=== PATIENT | male | born 1965 | race Caucasian/White ===

== ENCOUNTER 2019-01-18 06:47 | Day surgery (SDC) | payer BC ==
[2019-01-04 08:44] VITALS: BMI 27.7
--- NOTE | 2019-01-17 22:00 | HP ---
DATE OF EXAM: 01/18/2019 REASON FOR ADMISSION: Left heart cath, possible angioplasty, abnormal stress test. BRIEF CLINICAL HISTORY: This is a 53-year-old male with past medical history significant for hypertension, who recently had abnormal stress test with Dr. Dhaliwal, so the patient is scheduled for elective cardiac cath, possible angioplasty. PAST MEDICAL HISTORY: Significant for hypertension and hyperlipidemia. SOCIAL HISTORY: Denies any smoking. Denies any history of alcohol abuse. CURRENT MEDICATIONS: The patient is taking amlodipine 10 mg daily, enalapril 20 mg daily, vitamin D 5000 units, omega-3 and cholecalciferol, this is vitamin D3, vitamin A, and vitamin C as well. ALLERGIES: ALLERGY TO FLUORESCEIN. RECENT CARDIAC WORKUP FOLLOWS: The patient had a stress test dated 12/21/2018 that shows ejection fraction 53%. Nuclear scan is probably abnormal. Myocardial perfusion study partially reversible small size apical defect suspicious for ischemia, normal gated wall motion abnormality. The patient walked on the treadmill 8 minutes and 23 seconds. Juni protocol was stopped due to fatigue, achieved 90% of predicted heart rate. No chest pain. No ST-T changes noted, but nuclear scan suspicious for ischemia. Echocardiography dated 12/21/2018 showed normal LV size, ejection fraction 55%, right ventricle size is normal, left atrium is normal, right atrium is normal, aortic valve structure is normal, mild mitral regurgitation, and mild tricuspid regurgitation. REVIEW OF SYSTEMS: As per HPI. PHYSICAL EXAMINATION: GENERAL: As follows; height of the patient 5 feet 6 inches, weight of the patient 172 pounds, and body mass index 27.2 kg/m2. VITAL SIGNS: Temperature afebrile, heart rate 80, and blood pressure 130/80. HEENT: PERRLA. Extraocular muscles intact. NECK: Supple. No carotid bruits. No thyromegaly. CHEST: Clear to auscultation. HEART: S1 and S2 regular. ABDOMEN: Soft. EXTREMITIES: Clubbing and cyanosis negative. IMPRESSION AND PLAN: A 53-year-old male with past medical history significant for hypertension, hyperlipidemia, vitamin D deficiency, underwent stress test that shows abnormal apical ischemia. The patient is scheduled for elective cardiac catheterization, possible angioplasty. The patient's echocardiogram shows trace mitral regurgitation, trace tricuspid regurgitation. We will load with aspirin and Plavix. Risks, benefits, and alternatives discussed with patient, the patient agreed, and we will proceed for cardiac catheterization. Further recommendations after cardiac catheterization. We will follow with you. Thank you Dr. Vyas for providing us the opportunity in taking care of the patient, Anthony Guadarrama. Kimo Gaitan MD
[2019-01-18 07:13] LABS: BASO # 0.01 K/mm3 (0.0-2.0); BASO % 0.2 % (0.0-3.0); EOS # 0.1 (0.0-0.7); EOS % 1.4 % (1.5-5.0); HEMOGLOBIN 16.3 g/dL (14.0-18.0); LYMPH # 2.1 (1.2-3.4); LYMPH % 36.5 % (22.0-35.0); MEAN CELL VOLUME 87.6 fl (80.0-105.0); MEAN CORPUSCULAR HEMOGLOBIN 28.9 pg (25.0-35.0); MEAN PLATELET VOLUME 9.8 fl (7.0-11.0); MONO # 0.3 (0.1-0.6); MONO % 5.8 % (1.0-6.0); RBC 5.64 10^6/uL (3.5-6.1); RED CELL DISTRIBUTION WIDTH 14.2 % (11.5-14.5); WHITE BLOOD COUNT 5.7 10^3/uL (4.5-11.0)
[2019-01-18 07:23] VITALS: RESP 18
[2019-01-18 07:23] LABS: INR 1.02; PARTIAL THROMBOPLASTIN TIME 35.3 Seconds (26.9-38.3); PROTHROMBIN TIME 11.5 SECONDS (9.4-12.5)
[2019-01-18 07:24] LABS: BLOOD UREA NITROGEN 19 mg/dL (7-21); CALCIUM 9.2 mg/dL (8.4-10.5); GFR NON-AFRICAN AMERICAN > 60; HDL CHOLESTEROL 26 mg/dL (29-60)
[2019-01-18 07:34] LABS: LDL CHOLESTEROL 132 mg/dL (0-129)
[2019-01-18] MEDS ORDERED: Verapamil 2 ML ONE (08:48)
[2019-01-18] MEDS ORDERED: Lidocaine PF 2% (5 ml) Inj (For Cardiac Arrhy) ONE (08:48)
[2019-01-18] MEDS ORDERED: Nitroglycerin 50mg in D5W 50 MG/250 ML BOTTLE IV ONE (08:49)
[2019-01-18] MEDS ORDERED: Iohexol 350mgl/ml 50 ML ONE (08:49)
[2019-01-18] MEDS ORDERED: Iodixanol 320 MG/ML 200 ML BOTTLE IV ONE (08:49)
[2019-01-18] MEDS ORDERED: Midazolam 2 MG/2 ML VIAL ONE ×2 (09:10→09:34)
[2019-01-18] MEDS ORDERED: Bacitracin 500 Units/gm Oint Foilpak UD TOP ONE (10:01)
[2019-01-18] MEDS ORDERED: Sodium Chloride 0.9% 1,000 ML IV SCH (10:15)
[2019-01-18 10:24] VITALS: TEMP 97.5
--- NOTE | 2019-01-18 10:26 | CPOSTOP ---
DATE: 01/18/2019 CARDIOVASCULAR LAB POST PROCEDURE NOTE DICTATION PHYSICIAN: Kimo Gaitan MD [employer] DYEING MACHINE OPERATOR: Yazmin breeding technician. TYPE OF ANESTHESIA: Moderate conscious sedation, total 2 mg of Versed and 125 mcg of fentanyl given periodically. Started 1 mg of Versed and 50 mcg of fentanyl. PRE-PROCEDURE DIAGNOSIS: Unstable angina, abnormal stress test and recurrent chest pain. PROCEDURE PERFORMED: Left heart catheterization. FINDINGS: Nonobstructive coronary artery disease. FINAL DIAGNOSIS: Nonobstructive coronary artery disease. POST PROCEDURE CONDITION: The patient's condition is stable. VASCULAR ACCESS SITE: Left radial artery. CLOSURE DEVICE: TR band. TOTAL RADIATION DOSE: 4589 milligray unit. CUMULATIVE DOSE: 644 milligray unit. FLUORO TIME: 2.5 minutes. TOTAL CONTRAST USED: 40 mL. Kimo Gaitan MD
[2019-01-18 11:24] VITALS: O2SAT 96
[2019-01-18] MEDS ORDERED: Bacitracin 500 Units/gm Oint Foilpak UD ONE (13:39)
[2019-01-18 14:09] VITALS: BP 122/88; PULSE 68
--- NOTE | 2019-01-18 16:49 | CARD ---
APPROVED REPORT Date of service: 01/18/2019 EKG Measurement Heart [id number] <Conclusion> Normal sinus rhythm with sinus arrhythmia Normal ECG
--- NOTE | 2019-01-18 16:53 | CARD ---
APPROVED REPORT Date of service: 01/18/2019 Procedure(s) performed: Left Heart Catheterization HISTORY The patient is a 53 year-old male with a history of : most recent EF: 53%. (EF Method: RADIONUCLIDE), tobacco history() : The patient is a current smoker , hypertension , dyslipidemia , Recurrent chest pain and and abnoraml stress test reversible Apical and anterlateral ischemia.. INDICATION The indication(s) include : positive stress test, unstable angina . CASE TECHNIQUE The patient was brought electively to the Cardiac Catheterization Laboratory in a fasting state and was prepped and draped in a sterile manner. The left wrist was infiltrated with 2% Lidocaine subcutaneous anesthesia. A 6FR GLIDESHEATH ACCESS KIT sheath was inserted into the left radial artery without difficulty. Coronary angiography was performed using coronary diagnostic catheters. The left coronary system was accessed and visualized with a Diagnostic ,5F JL 4 CATH DXT 100 CM catheter. The right coronary system was accessed and visualized with a Diagnostic ,5F JR 4 CATH DXT 100 CM catheter. The left ventricle was accessed and visualized with a 5F PIGTAIL 145 CATH DXT 110 CM catheter. Left ventricular/Aortic Valve gradient assessed on pullback. Left ventriculogram was performed in CARROLL projection. Closure device was deployed with a Fr TR Band (Regular) without any complications. The patient tolerated the procedure well and there were no complications associated with the procedure. Vessel Analysis The patient's coronary anatomy is right dominant. The left main coronary artery is a medium size vessel without significant stenosis. The left main bifurcates to the left anterior descending and circumflex. The left anterior descending artery is a medium size vessel with diffuse calcification noted throughout this vessel and without significant stenosis. Very tortous vessel There is a 30% stenosis in the distal segment. The first diagonal branch is a small size vessel with diffuse calcification noted throughout this vessel and without significant stenosis. Very tortous vessel The second diagonal branch is a small size vessel with diffuse calcification noted throughout this vessel and without significant stenosis. Very tortous vessel. The circumflex artery is a medium size vessel with diffuse calcification noted throughout this vessel and without significant stenosis. There is a 30-40% stenosis in the mid segment. The first obtuse marginal branch is a small size vessel with diffuse calcification noted throughout this vessel and without significant stenosis. The second obtuse marginal branch is a medium size vessel with diffuse calcification noted throughout this vessel and without significant stenosis. The right coronary artery is a medium size vessel with diffuse calcification noted throughout this vessel and without significant stenosis. The right posterior descending artery is a small size vessel with diffuse calcification noted throughout this vessel and with significant stenosis. There is a 55% stenosis in the distal segment. Diffusely diseased. No focal stenosis. The right posterolateral branch is a small size vessel with diffuse calcification noted throughout this vessel and without significant stenosis. Left Ventricle The left ventricle is normal in size with Normal contractility. There was no cardiomyopathy. The left ventricular ejection fraction is estimated to be 55-60%. The left ventricular end diastolic pressure is 12 mmHg. There was no gradient across the aortic valve upon pullback. Conclusion non obstructive CAD limited to distal R PDA, diffusely diseasesd but no focal flow limiting stenosis. mild to Moderate disease in dital LAD and Cx. Preserved LV Fx. EF-55-60%, Edp-12 mmof Hg. Recommendations Aggressive Medical TherapyCardiac Risk Reduction Program Weight Loss Reduction Program Cc; drs. Vyas/ Madhuri.
== END 2019-01-18 16:30 | disposition home or self-care (01) ==
LOC: CATH 06:47
PROVIDERS: ATTEND Internal Medicine Cardiovascular Disease
DX: I25.110 Atherosclerotic heart disease of native coronary artery with unstable angina pectoris (principal); R94.39 Abnormal result of other cardiovascular function study; E78.5 Hyperlipidemia, unspecified; E55.9 Vitamin D deficiency, unspecified; I10 Essential (primary) hypertension; I08.1 Rheumatic disorders of both mitral and tricuspid valves; Z79.899 Other long term (current) drug therapy; Z88.8 Allergy status to other drugs, medicaments and biological substances
CPT/HCPCS: 36415; 80048; 80061; 85025; 85610; 85730; 86850; 86900; 93005; 93458; 99152; C1769; J1644 ×2; J2250; J3010; J7030; Q9966